=== PATIENT | female | born 1980 | race Two or more races ===

== ENCOUNTER 2022-09-08 16:01 | Emergency (ER) | payer SELFPAY ==
[~2022-09-08] VITALS: Ht 160 cm; Wt 94.3 kg
[2022-09-08] MEDS ORDERED: MECLIZINE HCL 25 MG TAB PO ONE (16:30)
[2022-09-08 17:02] LABS: Basophils # (auto) 0 10 ^3/uL (0-0.2); Basophils % (auto) 0.2 % (0.0-2.0); Eosinophils # (auto) 0.1 10 ^3/uL (0-0.8); Eosinophils % (auto) 1.3 % (0.0-7.0); Hemoglobin 13.7 g/dL (12.2-16.2); Lymphocytes % (auto) 40.3 % (10.0-50.0); Mean Corpuscular Hemoglobin 30.7 pg (28.0-32.0); Mean Corpuscular Hgb Conc. 34.1 g/dL (32.0-36.0); Monocytes # (auto) 0.4 10 ^3/uL (0-1.3); Monocytes % (auto) 6.1 % (0.0-12.0); Neutrophils # (auto) 3.8 10 ^3/uL (1.6-8.6); Neutrophils % (auto) 52.1 % (37.0-80.0); Nucleated Red Blood Cells % 0.1 %; Red Blood Cells 4.45 10^6/uL (4.0-5.20); White Blood Cell 7.3 10^3/uL (4.4-10.8)
[2022-09-08 17:21] LABS: Albumin 3.5 g/dL (3.4-5.0); BUN/Creatinine Ratio 17.4; Calcium 8.6 mg/dL (8.5-10.1); Potassium 4.2 mmol/L (3.5-5.1)
[2022-09-08 17:22] LABS: Bilirubin, Total 0.3 mg/dL (0.2-1.0); Total Protein 7.9 g/dL (6.4-8.2)
[2022-09-08] MEDS ORDERED: MECL12.514 PO ×3 (17:37→20:59)
[2022-09-08 20:15] VITALS: BP 136/94
[2022-09-08] MEDS ORDERED: ONDA-144 PO ×2 (20:54→20:59)
== END 2022-09-08 20:21 | disposition home or self-care (01) ==
LOC: ER 16:01
DX: R42 Dizziness and giddiness (principal)
CPT/HCPCS: 36415; 70450; 80053; 85025; 99284; J8597

== ENCOUNTER 2023-06-10 06:15 | Emergency (ER) | payer OTHER ==
[~2023-06-10] VITALS: Ht 160 cm; Wt 93.9 kg
[~2023-06-10 06:15] MED LIST: MECL1TAB31 PO; ONDA-144 PO
[2023-06-10] MEDS ORDERED: ONDANSETRON ODT 4 MG TAB PO ONE (07:15)
[2023-06-10] MEDS ORDERED: SUMAtriptan SUCCINATE 6 MG/0.5 ML VL SC ONE (07:15)
[2023-06-10 07:17] VITALS: BP 126/87; PULSE 81; RESP 18; TEMP 98.7; O2SAT 98
[2023-06-10] MEDS ORDERED: SUMA50TA2 PO (08:18)
[2023-06-10] MEDS ORDERED: ZOFR4T PO (08:29)
== END 2023-06-10 08:25 | disposition home or self-care (01) ==
LOC: ER 06:15
DX: G43.909 Migraine, unspecified, not intractable, without status migrainosus (principal); Z79.899 Other long term (current) drug therapy
CPT/HCPCS: 96372; 99283; J3030; Q0162